=== PATIENT | female | born 1965 | race Caucasian/White ===

== ENCOUNTER 2017-02-04 09:28 | Day surgery (SDC) | payer BC ==
[2017-02-04] MEDS ORDERED: OXYCODONE/APAP 10MG-325MG TABLET PO ONE (13:17)
[2017-02-04] MEDS ORDERED: LIDOCAINE 2% MDV (20MG/ML) 20ML VIAL IV ONE (14:00)
[2017-02-04] MEDS ORDERED: *PACU ONLY* KETAMINE HCL 10 MG/ML (20ML) VIAL IV ONE (14:00)
[2017-02-04] MEDS ORDERED: PROPOFOL 10 MG/ML VIAL IV ONE (14:00)
[2017-02-04] MEDS ORDERED: FENTANYL PF 100MCG/2ML VIAL IV ONE (14:00)
[2017-02-04] MEDS ORDERED: MIDAZOLAM HCL 2MG/2ML VIAL IV ONE (14:00)
[2017-02-04] MEDS ORDERED: FLUMAZENIL 1MG/10ML VIAL IV ONE (14:00)
[2017-02-04] MEDS ORDERED: LIDOCAINE 1% W/EPI 1:200,000 MPF 30ML SQ ONE (14:15)
[2017-02-04] MEDS ORDERED: DEXAMETHASONE PRESERVATIVE FREE 10MG/ML VIAL IV ONE (14:15)
[2017-02-04] MEDS ORDERED: BUPIVACAINE 0.5% W/EPI MPF 30 ML VIAL IVP ONE (14:15)
--- NOTE | 2017-02-04 16:44 | Operative Note - Ferro ---
DATE OF SURGERY: 02/04/17 PREOPERATIVE DIAGNOSIS: CERVICAL SPONDYLOSIS WITHOUT MYELOPATHY, ICD-10 CODE = M47.812. OPERATION: RADIOFREQUENCY RHIZOTOMY BILATERAL CERVICAL FACETS 4-5, 5-6, AND 6-7. SURGEON: ISRA YOUNGBLOOD D.O. ANESTHESIA: LOCAL SEDATION. ANESTHESIA PROVIDER: ARLEN SHEIKH CRNA. INDICATION: This patient presents with neck pain. Examination shows tenderness in the cervical spine. Range of motion does cause pain to the neck with extension. Diagnostic studies show diffuse multiple levels of spondylosis. A facet series 75-80% pain control. Due to the failure of therapy and the success of the facet series, patient presents today for rhizotomy for more long-term relief. PROCEDURE: Intravenous line, vital sign monitoring, IV sedation, prepped, draped, sterile technique. Under imaging, cervical facet levels at 4-5, 5-6, and 6-7 were identified and marked bilaterally. Skin infiltrated. A 22-gauge rhizotomy cannula positioned. Stimulation trials conducted. Rhizotomy burn performed. Local with anti-inflammatory into the sites. Topical antibiotics. Sterile dressing applied. We will monitor and evaluate. cc: Dr. Heredia JOB NUMBER: [id number] MTDD
== END 2017-02-04 11:40 | disposition home or self-care (01) ==
LOC: SUR 09:28
PROVIDERS: ATTEND Pain Medicine Interventional Pain Medicine
DX: M47.812 Spondylosis without myelopathy or radiculopathy, cervical region (principal); F17.210 Nicotine dependence, cigarettes, uncomplicated
CPT/HCPCS: 64633; 64634 ×2; 01936; J1100; J3010

== ENCOUNTER 2017-06-10 06:41 | Day surgery (SDC) | payer BC ==
[2017-06-10] MEDS ORDERED: BUPIVACAINE 0.5% W/EPI MPF 30 ML VIAL IVP ONE (06:42)
[2017-06-10] MEDS ORDERED: LIDOCAINE 2% MDV (20MG/ML) 20ML VIAL IV ONE (06:42)
[2017-06-10] MEDS ORDERED: FENTANYL PF 100MCG/2ML VIAL IV ONE (06:42)
[2017-06-10] MEDS ORDERED: PROPOFOL 10 MG/ML VIAL IV ONE (06:42)
[2017-06-10] MEDS ORDERED: LIDOCAINE 1% W/EPI 1:200,000 MPF 30ML SQ ONE (06:42)
[2017-06-10] MEDS ORDERED: DEXAMETHASONE PRESERVATIVE FREE 10MG/ML VIAL IV ONE (06:42)
[2017-06-10] MEDS ORDERED: MIDAZOLAM HCL 2MG/2ML VIAL IV ONE (06:42)
[2017-06-10] MEDS ORDERED: HYDROCODONE/APAP 7.5/325MG TABLET PO ONE (06:42)
--- NOTE | 2017-06-10 15:15 | Operative Note - Ferro ---
DATE OF SURGERY: 06/10/17 PREOPERATIVE DIAGNOSIS: CERVICAL RADICULITIS, ICD-10 CODE M54.13. OPERATION: FLUOROSCOPICALLY-GUIDED CERVICAL EPIDURAL INJECTION C6/7. SURGEON: ISRA YOUNGBLOOD D.O. ANESTHESIA: LOCAL WITH SEDATION. ANESTHESIA PROVIDER: MARKO WILLOUGHBY CRNA. INDICATION: This patient presents with pain, which starts at the neck but then extends into the shoulder and arm, somewhat more left than right. Diagnostics show a 5/6 disc and diffuse spondylosis. PROCEDURE: Intravenous line, vital sign monitoring, IV sedation, prepped, draped, sterile technique. Under imaging, cervical epidural interspace left quadrant C6/7 marked and infiltrated. A #20 gauge 3.5-inch Tuohy needle with 5 mL of 0.125% Marcaine with Dexamethasone injected. Needle removed. Neck cleaned , topical antibiotic, and sterile dressing were applied. We will monitor and evaluate. cc: Dr. Heredia JOB NUMBER: [id number] MTDD
== END 2017-06-10 09:00 | disposition home or self-care (01) ==
LOC: SUR 06:41
PROVIDERS: ATTEND Pain Medicine Interventional Pain Medicine
DX: M54.13 Radiculopathy, cervicothoracic region (principal); I10 Essential (primary) hypertension
CPT/HCPCS: 62321; 01936; Q9967; J1100; J3010

== ENCOUNTER 2017-08-19 07:11 | Day surgery (SDC) | payer BC ==
[2017-08-19] MEDS ORDERED: LIDOCAINE 2% MDV (20MG/ML) 20ML VIAL IV ONE (07:12)
[2017-08-19] MEDS ORDERED: OXYCODONE/APAP 10MG-325MG TABLET PO ONE (07:12)
[2017-08-19] MEDS ORDERED: BUPIVACAINE 0.5% W/EPI MPF 30 ML VIAL IVP ONE (07:12)
[2017-08-19] MEDS ORDERED: LIDOCAINE 1% W/EPI 1:200,000 MPF 30ML SQ ONE (07:12)
[2017-08-19] MEDS ORDERED: 0.9 % SODIUM CHLORIDE 10 ML VIAL IVP ONE (07:12)
[2017-08-19] MEDS ORDERED: BUPIVACAINE 0.25% MPF 30ML VIAL IVP ONE (07:12)
[2017-08-19] MEDS ORDERED: FENTANYL PF 100MCG/2ML VIAL IV ONE (07:12)
[2017-08-19] MEDS ORDERED: MIDAZOLAM HCL 2MG/2ML VIAL IV ONE (07:12)
[2017-08-19] MEDS ORDERED: PROPOFOL 10 MG/ML VIAL IV ONE (07:12)
[2017-08-19] MEDS ORDERED: DEXAMETHASONE PRESERVATIVE FREE 10MG/ML VIAL IV ONE (07:12)
--- NOTE | 2017-08-19 20:05 | Operative Note - Ferro ---
DATE OF SURGERY: 08/19/17 PREOPERATIVE DIAGNOSIS: CERVICAL RADICULOPATHY, ICD-10 CODE = M54.12. SURGERY: FLUOROSCOPIC-GUIDED CERVICAL EPIDURAL INJECTION RIGHT QUADRANT C6-7. SURGEON: ISRA YOUNGBLOOD D.O. ANESTHESIA: LOCAL SEDATION. ANESTHESIA PROVIDER: MARKO WILLOUGHBY CRNA INDICATIONS: This patient presents with pain, which starts in the neck but then extends into the shoulder and arm. Diagnostics show both the 5-6 and 6-7 discs. SURGERY: Intravenous line, vital sign monitoring, IV sedation, prepped and draped sterile technique. Under imaging, the cervical epidural interspace right quadrant C6-7 was marked and infiltrated. An #18 gauge Tuohy needle with loss-of -resistance. 5 mL of 0.125% Marcaine with Dexamethasone injected. The right occipital area marked and skin infiltrated and then a #25 gauge needle was used to infiltrate and block the right greater occipital nerve. All areas were cleaned. Topical antibiotic and sterile dressing applied. We will monitor and evaluate. cc: Dr. Heredia JOB NUMBER: [id number] MTDD
== END 2017-08-19 08:50 | disposition home or self-care (01) ==
LOC: SUR 07:11
PROVIDERS: ATTEND Pain Medicine Interventional Pain Medicine
DX: M54.12 Radiculopathy, cervical region (principal); I10 Essential (primary) hypertension; J44.9 Chronic obstructive pulmonary disease, unspecified
CPT/HCPCS: 62321; 01992; J1100; J3010

== ENCOUNTER 2018-01-04 22:03 | Inpatient (IN) | payer BC ==
[2018-01-04] MEDS ORDERED: MORPHINE SULFATE 10 MG/ML VIAL IVP ONE (22:23)
[2018-01-04] MEDS ORDERED: ONDANSETRON HCL IV 4 MG/2 ML VIAL IVP ONE (22:23)
--- NOTE | 2018-01-04 22:28 | Emergency Department Record ---
History of Present Illness - General Chief Complaint: Abdominal Pain Stated Complaint: abdominal pain Time Seen by Provider: 01/04/18 22:22 Source: Patient Mode of Arrival: Ambulatory Limitations: No limitations - History of Present Illness Initial Comments: 52 yo female presents to ED with worsening RUQ pain symptoms that began approximately 8 days ago. Patient reports that her pain radiates to the shoulder and back. Patient reports loose stools and decreased appetite, denies fevers, chills, flank pain, or health problems at her baseline. Patient does report previous appendectomy and laparoscopy for fertility issues. Patient denies urinary symptoms. MD Complaint: Abdominal pain Onset/Timin -: Days(s) Location: RUQ Radiation: Back, Other Migration to: No migration Severity scale (1-10): 10 Quality: Sharp Consistency: Constant Improves With: Other Worsens With: Nothing Associated Symptoms: Diarrhea, Nausea, Other - Related Data Patient : No Hx Age of Menopause: 48 Home Medications Medication Instructions Recorded Confirmed Last Taken Cyclobenzaprine HCl [Flexeril] 5 mg PO TID PRN 01/04/18 01/04/18 Unknown Eszopiclone [Lunesta] 3 mg PO QHS 01/04/18 01/04/18 Unknown Hydrocodone/APAP 5/325Mg [Vulcan 1 each PO TID PRN 01/04/18 01/04/18 Unknown 5Mg/325Mg] Mometasone/Formoterol [Dulera 100 2 puff INH BID 01/04/18 01/05/18 Unknown Mcg/5 Mcg Inhaler] Verapamil HCl [Verelan Pm] 300 mg PO DAILY 01/04/18 01/04/18 Unknown Albuterol Sulfate [Ventolin Hfa] 2 puff INH Q4H PRN 01/05/18 01/05/18 Unknown Allergies Allergy/AdvReac Type Severity Reaction Status Date / Time methotrexate Allergy RASH Verified 01/04/18 22:09 Sulfa (Sulfonamide Allergy HIVES Verified 01/04/18 22:09 Antibiotics) infliximab [From Remicade] AdvReac PT UNSURE Verified 01/04/18 22:09 OF REACTION ketamine AdvReac ALTERED Verified 01/04/18 22:09 MENTAL STATUS Travel Screening - Travel/Exposure Within Last 30 Days Have you traveled within the last 30 days?: No - Travel/Exposure Within Last Year Have you traveled outside the [place] in the last year?: No - Additonal Travel Details Have you been exposed to anyone with a communicable illness?: No - Travel Symptoms Symptom Screening: None Review of Systems Constitutional: Denies: Chills, Fever, Malaise, Night sweats Eyes: Denies: Eye discharge, Eye pain ENT: Denies: Congestion, Ear pain, Epistaxis Respiratory: Denies: Cough, Dyspnea Cardiovascular: Denies: Chest pain, Dyspnea on exertion Endocrine: Denies: Fatigue, Heat or cold intolerance Gastrointestinal: Reports: Abdominal pain. Denies: Nausea Genitourinary: Denies: Incontinence, Retention Musculoskeletal: Reports: Back pain Skin: Denies: Bruising, Change in color Neurological: Denies: Abnormal gait, Confusion, Headache, Seizure Psychiatric: Denies: Anxiety Hematological/Lymphatic: Denies: Anemia, Blood Clots Past Medical History - SOCIAL HISTORY Smoking Status: Current every day smoker Alcohol Use: Rare Drug Use: None - RESPIRATORY Hx Respiratory Disorders: Yes Hx Asthma: Yes (no inhaler since she stopped smoking 6 wks ago) Hx Bronchitis: Yes Hx Pneumonia: Yes Hx Pulmonary Embolism: Yes (1995) Comment:: psittacosis hx of prior to PE. - CARDIOVASCULAR Hx Cardio Disorders: Yes Hx Hypertension: Yes (recently on meds fair control) Hx Palpitations: Yes (cardiac workup recently neg) - NEURO Hx Neuro Disorders: Yes Hx of Migraines: Yes (hx of) Hx Neuropathy: Yes (legs) Hx Paralysis: Yes (right leg paralysis for 5 days unknown etiology) - GI Hx GI Disorders: Yes Hx Reflux: Yes Hx Ulcer: Yes (GI bleed x's 2) Hx of Polyps: Yes Comment:: . - Hx Genitourinary Disorders: No - ENDOCRINE Hx Endocrine Disorders: No - MUSCULOSKELETAL Hx Musculoskeletal Disorders: Yes Hx Arthritis: Yes (RA OA) Hx Fibromyalgia: Yes Hx Osteoporosis: Yes - PSYCH Hx Psych Problems: No - HEMATOLOGY/ONCOLOGY Hx Hematology/Oncology Disorders: No Family Medical History Any Significant Family History?: No Hx Cancer: Mother Hx Heart Disease: Father Physical Exam - General General Appearance: Alert, Oriented x3, Cooperative, Moderate distress Limitations: No limitations - Head Head exam: Atraumatic, Normocephalic, Normal inspection Head exam detail: negative: Abrasion, Contusion, Bradshaw's sign, General tenderness, Hematoma, Laceration - Eye Eye exam: Normal appearance. negative: Conjunctival injection, Periorbital swelling, Periorbital tenderness, Scleral icterus - ENT Ear exam: negative: Auricular hematoma, Auricular trauma Nasal Exam: negative: Active bleeding, Discharge, Dried blood, Foreign body Mouth exam: negative: Drooling, Laceration, Muffled voice, Tongue elevation - Neck Neck exam: Normal inspection. negative: Meningismus, Tenderness - Respiratory Respiratory exam: Normal lung sounds bilaterally. negative: Rales, Respiratory distress, Rhonchi, Stridor - Cardiovascular Cardiovascular Exam: Normal rhythm, Normal heart sounds, Tachycardia - GI/Abdominal GI/Abdominal exam: Soft, Rigid, Tenderness, Other (TTP with guarding to the RUQ on examination.). negative: Rebound - Rectal Rectal exam: Deferred - exam: Deferred - Extremities Extremities exam: Normal inspection. negative: Calf tenderness, Pedal edema, Tenderness - Back Back exam: Denies: CVA tenderness (R), CVA tenderness (L) - Neurological Neurological exam: Alert, Normal gait, Oriented X3 - Psychiatric Psychiatric exam: Normal affect, Normal mood - Skin Skin exam: Normal color. negative: Abrasion Type of lesion: negative: abrasion Course Vital Signs 01/04/18 01/04/18 22:11 22:13 Temperature 98.1 F 98.1 F Pulse Rate [ 117 H Pulse Ox Probe] Respiratory 24 24 Rate Blood Pressure 170/92 [Left Arm] Pulse Ox 97 97 - Reevaluation(s) Reevaluation #1: 01/04/18 22:48 Laboratory studies were reviewed and are grossly unremarkable for an acute process except for the following: AG 20 Potassium 3.[address] at this time. Reevaluation #2: 01/05/18 00:18 CT Abdomen and Pelvis: Area of glez-colitis is suspected in the transverse colon low in the abdomen Infectious vs. inflammatory No abscess or diverticula Multiple cysts in both kidneys Patient was updated on all results, continues to report her pain symptoms at 7/ 10 following Morphine/Dilaudid. Cipro and Flagyl initiated in ED, will admit for further evaluation. Reevaluation #3: 01/05/18 07:10 Case was discussed with Chasity Watts, will accept admission at this time. Medical Decision Making - Lab Data Result diagrams: 01/04/18 22:19 01/04/18 22:19 Disposition Disposition: Admit Clinical Impression: Colitis Disposition: Still a Patient at [facility] Decision to Admit: Admit from ER Decision to Admit Date: 01/05/18 Decision to Admit Time: 00:21 Condition: (2) Stable Time of Disposition: 00:21 Quality - Quality Measures Quality Measures: N/A - Blood Pressure Screening Does Patient Have Any of the Following: No Blood Pressure Classification: Normal BP Reading Systolic Measurement: 92 Diastolic Measurement: 60 Screening for High Blood Pressure: < Normal BP, F/U Not Required > [[id number]] Pre-Hypertensive Follow-up Interventions: Referral to alternative/primary care provider.
[2018-01-04] MEDS ORDERED: 0.9 % SODIUM CHLORIDE 1000ML 1,000 ML IV SCH (22:30)
[2018-01-04 22:32] LABS: BASO % 0.1 % (0-6); EOS % 0.4 % (0-6); GRAN % 55.1 % (47-80); HEMATOCRIT 45.2 % (35.0-47.0); HEMOGLOBIN 15.3 gm/dl (11.6-16.0); LYMPH % 38.3 % (16-45); MEAN CELL VOLUME 92.4 fl (81-97); MEAN CORPUSCULAR HEMOGLOBIN 31.3 pg (27-33); MEAN CORPUSCULAR HGB CONC 33.8 g/dl (32-36); MONO % 6.1 % (0-9); PLATELET COUNT 351 K/uL (130-400); RED BLOOD COUNT 4.89 M/uL (3.80-5.40); RED CELL DISTRIBUTION WIDTH 13.8 % (11.5-14.5); WHITE BLOOD COUNT W/O DIFF 9.2 K/uL (4.2-12.2)
[2018-01-04 22:33] LABS: URINE APPEARANCE CLEAR; URINE BILIRUBIN NEGATIVE (NEGATIVE); URINE BLOOD SMALL (NEGATIVE); URINE COLOR YELLOW; URINE GLUCOSE (UA) NEGATIVE (NEGATIVE); URINE KETONE TRACE (NEGATIVE); URINE LEUKOCYTE ESTERASE NEGATIVE (NEGATIVE); URINE NITRITE NEGATIVE (NEGATIVE); URINE PROTEIN NEGATIVE (NEGATIVE); URINE UROBILINOGEN 0.2 E.U./dL (0.20 - 1.00)
[2018-01-04 22:39] LABS: URINE EPITHELIAL CELLS NONE SEEN (FEW); URINE RBC 0 - 2 (NONE SEEN); URINE WBC 0 - 2 (0-2/hpf)
[2018-01-04 22:42] LABS: BLOOD UREA NITROGEN 8 mg/dL (6-20); CREATININE 0.8 mg/dL (0.5-0.9); EST GLOMERULAR FILTRATION RATE > 60 mL/min
[2018-01-04 22:43] LABS: TOTAL PROTEIN 7.9 g/dL (6.6-8.7)
[2018-01-04 22:45] LABS: GLUCOSE,RANDOM 110 mg/dL (74-109)
[2018-01-04 22:47] LABS: ALB/GLOB RATIO 1.7 (1.1-1.8); ALKALINE PHOSPHATASE 86 U/L (35-104); ALT/SGPT 16 U/L (<33); AST/SGOT 18 U/L (10.0-35.0)
[2018-01-04 22:48] LABS: LIPASE 14 U/L (13-60)
[2018-01-04] MEDS ORDERED: HYDROMORPHONE HCL 2 MG/ML VIAL IVP ONE (23:19)
[2018-01-05] MEDS ORDERED: CIPROFLOXACIN LACTATE/D5W 400 MG/200 ML BAG IVPB ONE (00:17)
[2018-01-05] MEDS ORDERED: METRONIDAZOLE IVPB 500 MG/100 ML BAG IVPB ONE (00:17)
[2018-01-05] MEDS ORDERED: 0.9 % SODIUM CHLORIDE 1000ML 1,000 ML IV PRN (01:26)
[2018-01-05] MEDS ORDERED: ZOLPIDEM TARTRATE 5 MG TABLET PO PRN (01:40)
[2018-01-05] MEDS: HYDROMORPHONE HCL 2 MG/ML VIAL IV PRN ×4 (01:53→20:31)
[2018-01-05] MEDS ORDERED: CIPROFLOXACIN LACTATE/D5W 400 MG/200 ML BAG IVPB SCH (02:00)
[2018-01-05] MEDS: METRONIDAZOLE IVPB 500 MG/100 ML BAG IVPB SCH ×3 (02:54→20:37)
[2018-01-05] MEDS ORDERED: CYCLOBENZAPRINE 10MG TABLET PO PRN (09:30)
[2018-01-05] MEDS: VERAPAMIL ER 120 MG TABLET PO SCH (09:52)
[2018-01-05] MEDS: VERAPAMIL HCL 180 MG TAB CR PO SCH (09:52)
--- NOTE | 2018-01-05 09:52 | CT SCAN REPORT ---
EXAM: CT OF THE ABDOMEN AND PELVIS WITH CONTRAST HISTORY: RIGHT UPPER QUADRANT ABDOMINAL PAIN FOR EIGHT DAYS. TECHNIQUE: Contrast enhanced helical CT examination of the abdomen and pelvis was performed including delayed images through the kidneys with 100 ml of Omnipaque 300 utilized. Comparison: None. FINDINGS: There is mild dependent atelectasis in the left lung base. Minor linear scarring versus atelectasis is also demonstrated within the anterior lung bases. No pleural or pericardial effusion. The visualized heart is not enlarged. The liver, spleen, pancreas, and adrenal glands are normal in appearance. The gallbladder is unremarkable and no biliary ductal dilatation is seen. The kidneys are normal in size. Several small hypodense lesions are scattered in each kidney with the largest on the right arises from the posterior lower pole measuring 1.6 x 1.3 cm and has fluid density. The largest on the left also has fluid density measuring 1.3 cm in maximum diameter. These are consistent with simple cysts. The remaining lesions are too small for accurate characterization and therefore nonspecific, but also likely cysts. No intraabdominal nor retroperitoneal lymphadenopathy. The central mesenteric vasculature appears patent. Mild diffuse atherosclerosis without aneurysmal dilatation of the abdominal aorta nor iliac arteries. No pelvic mass, lymphadenopathy or free pelvic fluid. The uterus is normal in appearance. No focal urinary bladder abnormality is identified. No gross bowel dilatation is seen. There is apparent borderline to mild wall thickening of the colon extending from the mid transverse level to the sigmoid level. This may just relate to incomplete distention. Minor nonspecific colitis cannot be excluded. Surgical clips are noted posterior to the cecum. The gallbladder is not visualized, likely surgically absent. No lytic or blastic bone lesion. Mild degenerative changes scattered within the visualized spine. IMPRESSION: 1. APPARENT BORDERLINE TO MILD WALL THICKENING OF THE LEFT COLON. THIS MAY JUST RELATE TO INCOMPLETE DISTENTION. MILD NONSPECIFIC COLITIS CANNOT BE EXCLUDED. OTHERWISE, NO EVIDENCE OF AN ACUTE INTRAABDOMINAL/INTRAPELVIC PROCESS. 2. SEVERAL SMALL HYPODENSE MASSES IN EACH KIDNEY. THOSE GREATER THAN 1 CM ARE CONSISTENT WITH SIMPLE CYSTS. THE REMAINDER ARE TOO SMALL FOR ACCURATE CHARACTERIZATION AND ARE NONSPECIFIC, BUT ALSO LIKELY CYSTS. JOB NUMBER: [id number] [facility]
[2018-01-05] MEDS ORDERED: BREO (FLUTICASONE/VILANTEROL) 100MCG/25MCG INHALER INH SCH (10:00)
[2018-01-05] MEDS ORDERED: CYCLOBENZAPRINE 10MG TABLET PO SCH (10:00)
--- NOTE | 2018-01-05 10:17 | History & Physical ---
History of Present Illness - Date of Service Date of Service for History & Physical: 01/05/18 - History of Present Illness Admitting Diagnosis: Pancolitis History of Present Illness: 52 year old female presented to ED for worsening RUQ pain x 8 days. Patient also reports frequent diarrhea stools for the past 8 days, sometimes up to 8 times per day. Patient denies blood in the stools, vomiting, shortness of breath, or dizziness. Patient states that the pain radiates to the shoulder and back. She is unsure if she has had a fever, reporting frequent feelings of being flushed. Patient denies any urinary symptoms. Patient's medical history includes rheumatoid arthritis, inflammatory arthritis , fibromyalgia, cancerous polyps of her colon, and back pain for which she sees Dr. Yap. Past surgical history includes an appendectomy and laparoscopy for fertility issues. PCP: ED Course: VS: Temp 98.1F, Heart rate 117, RR 24, BP 170/92, pulse ox 97% Labs: K+ 3.2, anion gap 20, WBC WNL, UA trace ketones Abd/pelvis CT: mild colitis, bilateral renal cysts Started on Cipro and Flagyl Morphine and Dilaudid for pain control NPO, 0.9%NS @ 125ml/hr 01/05/18: Patient alert and oriented x 4. Resting comfortably on bed. Patient remains NPO, IV fluids 0.9%NS @125ml/hr. VS wnl. Patient continues to have RUQ abd pain 7/10 despite Dilaudid. Abd US ordered, CRP pending. Stool cultures ordered as well. Will remain NPO until further testing resulted, will add K+ to IV fluids. Travel Screening - Travel/Exposure Within Last 30 Days Have you traveled within the last 30 days?: No - Travel/Exposure Within Last Year Have you traveled outside the [place] in the last year?: No - Additonal Travel Details Have you been exposed to anyone with a communicable illness?: No - Travel Symptoms Symptom Screening: None Review of Systems Constitutional: Denies: Chills, Fever, Malaise, Night sweats Eyes: Denies: Eye discharge, Eye pain ENT: Denies: Congestion, Ear pain, Epistaxis Respiratory: Denies: Cough, Dyspnea Cardiovascular: Denies: Chest pain, Dyspnea on exertion Endocrine: Denies: Fatigue, Heat or cold intolerance Gastrointestinal: Reports: Abdominal pain, Nausea. Denies: Vomiting Genitourinary: Denies: Incontinence, Retention Musculoskeletal: Reports: Back pain (chronic) Skin: Denies: Bruising, Change in color Neurological: Denies: Abnormal gait, Confusion, Headache, Seizure Psychiatric: Denies: Anxiety Hematological/Lymphatic: Denies: Anemia, Blood Clots Past Medical History - SOCIAL HISTORY Smoking Status: Current every day smoker Alcohol Use: Rare Drug Use: None - RESPIRATORY Hx Respiratory Disorders: Yes Hx Asthma: Yes (no inhaler since she stopped smoking 6 wks ago) Hx Bronchitis: Yes Hx Pneumonia: Yes Hx Pulmonary Embolism: Yes (1995) Comment:: psittacosis hx of prior to PE. - CARDIOVASCULAR Hx Cardio Disorders: Yes Hx Hypertension: Yes (recently on meds fair control) Hx Palpitations: Yes (cardiac workup recently neg) - NEURO Hx Neuro Disorders: Yes Hx of Migraines: Yes (hx of) Hx Neuropathy: Yes (legs) Hx Paralysis: Yes (right leg paralysis for 5 days unknown etiology) - GI Hx GI Disorders: Yes Hx Reflux: Yes Hx Ulcer: Yes (GI bleed x's 2) Hx of Polyps: Yes Comment:: . - Hx Genitourinary Disorders: No - ENDOCRINE Hx Endocrine Disorders: No - MUSCULOSKELETAL Hx Musculoskeletal Disorders: Yes Hx Arthritis: Yes (RA OA) Hx Fibromyalgia: Yes Hx Osteoporosis: Yes - PSYCH Hx Psych Problems: No - HEMATOLOGY/ONCOLOGY Hx Hematology/Oncology Disorders: No Family Medical History Any Significant Family History?: No Hx Cancer: Mother Hx Heart Disease: Father H&P Meds/Allergies - Allergies Allergies: Allergies Allergy/AdvReac Type Severity Reaction Status Date / Time methotrexate Allergy RASH Verified 01/04/18 22:09 Sulfa (Sulfonamide Allergy HIVES Verified 01/04/18 22:09 Antibiotics) infliximab [From Remicade] AdvReac PT UNSURE Verified 01/04/18 22:09 OF REACTION ketamine AdvReac ALTERED Verified 01/04/18 22:09 MENTAL STATUS - Home Medications Home Medications Medication Instructions Recorded Confirmed Last Taken Cyclobenzaprine HCl [Flexeril] 5 mg PO TID PRN 01/04/18 01/04/18 Unknown Eszopiclone [Lunesta] 3 mg PO QHS 01/04/18 01/04/18 Unknown Hydrocodone/APAP 5/325Mg [[place] 1 each PO TID PRN 01/04/18 01/04/18 Unknown 5Mg/325Mg] Mometasone/Formoterol [Dulera 100 2 puff INH BID 01/04/18 01/05/18 Unknown Mcg/5 Mcg Inhaler] Verapamil HCl [Verelan Pm] 300 mg PO DAILY 01/04/18 01/04/18 Unknown Albuterol Sulfate [Ventolin Hfa] 2 puff INH Q4H PRN 01/05/18 01/05/18 Unknown - Active Medications Active Medications: Current Medications Cyclobenzaprine HCl (Flexeril) 5 mg PO TID PRN PRN Reason: MUSCLE SPASM Last Admin: 01/05/18 09:51 Dose: 5 mg Enoxaparin Sodium (Lovenox) 40 mg SQ DAILY [facility] Hydromorphone HCl (Dilaudid) 1 mg IV Q2H PRN PRN Reason: ABDOMINAL PAIN Last Admin: 01/05/18 08:27 Dose: 1 mg Sodium Chloride () 1,000 mls @ 125 mls/hr IV .Q8H PRN PRN Reason: LARGE VOLUME IV Metronidazole/Sodium Chloride (Flagyl) 500 mg in 100 mls @ 100 mls/hr IVPB Q8H [facility] Stop: 01/10/18 02:01 Last Admin: 01/05/18 09:50 Dose: 100 mls/hr Ciprofloxacin Lactate (Cipro) 400 mg in 200 mls @ 200 mls/hr IVPB Q12H [facility] Stop: 01/10/18 13:01 Patient Own Med: (Lunesta 3 Mg) 1 each PO QHS [facility] Verapamil HCl (Calan Sr) 180 mg PO DAILY [facility] Last Admin: 01/05/18 09:52 Dose: 180 mg Verapamil HCl (Calan Sr) 120 mg PO DAILY [facility] Last Admin: 01/05/18 09:52 Dose: 120 mg Physical Exam - Vital Signs Vital Signs: Vital Signs - Last 24 Hrs Temp Pulse Resp BP BP Pulse Ox 01/05/18 08:59 97.2 F L 80 18 115/65 93 L 01/05/18 03:23 16 01/05/18 01:26 98.6 F 91 H 16 140/56 98 01/05/18 01:21 90 20 119/73 95 01/05/18 00:12 76 18 127/75 98 01/04/18 23:16 110 H 24 146/71 98 01/04/18 22:13 98.1 F 24 97 01/04/18 22:11 98.1 F 117 H 24 170/92 97 - General General Appearance: Alert, Oriented x3, Cooperative, No acute distress Limitations: No limitations - Head Head exam: Atraumatic, Normocephalic, Normal inspection Head exam detail: negative: Abrasion, Contusion, Bradshaw's sign, General tenderness, Hematoma, Laceration - Eye Eye exam: Normal appearance. negative: Conjunctival injection, Periorbital swelling, Periorbital tenderness, Scleral icterus - ENT ENT exam: Normal exam, Mucous membranes moist Ear exam: negative: Auricular hematoma, Auricular trauma Nasal Exam: negative: Active bleeding, Discharge, Dried blood, Foreign body Mouth exam: Normal external inspection. negative: Drooling, Laceration, Muffled voice, Tongue elevation - Neck Neck exam: Normal inspection. negative: Meningismus, Tenderness - Respiratory Respiratory exam: Normal lung sounds bilaterally. negative: Rales, Respiratory distress, Rhonchi, Stridor - Cardiovascular Cardiovascular Exam: Regular rate, Normal rhythm, Normal heart sounds - GI/Abdominal GI/Abdominal exam: Soft, Normal bowel sounds, Tenderness, Other (TTP with guarding to the RUQ on examination.). negative: Rebound - Rectal Rectal exam: Deferred - exam: Deferred - Extremities Extremities exam: Normal inspection. negative: Calf tenderness, Pedal edema, Tenderness - Back Back exam: Denies: CVA tenderness (R), CVA tenderness (L) - Neurological Neurological exam: Alert, Normal gait, Oriented X3 - Psychiatric Psychiatric exam: Normal affect, Normal mood - Skin Skin exam: Normal color. negative: Abrasion Type of lesion: negative: abrasion Results - Labs Result Diagrams: 01/04/18 22:19 01/04/18 22:19 Labs Last 24 Hours: Laboratory Results - last 24 hr 01/04/18 01/04/18 01/04/18 22:19 22:19 22:19 WBC 9.2 RBC 4.89 Hgb 15.3 Hct 45.2 MCV 92.4 MCH 31.3 MCHC 33.8 RDW 13.8 Plt Count 351 MPV 9.0 Gran % 55.1 Lymphocytes % 38.3 Monocytes % 6.1 Eosinophils % 0.4 Basophils % 0.1 Sodium 138 Potassium 3.2 L Chloride 95 L Carbon Dioxide 23.0 Anion Gap 20.0 H BUN 8 Creatinine 0.8 Estimated GFR > 60 Random Glucose 110 H Calcium 9.7 Total Bilirubin 0.50 AST 18 ALT 16 Alkaline Phosphatase 86 Total Protein 7.9 Albumin 5.0 Globulin 2.9 Albumin/Globulin Ratio 1.7 Lipase 14 Urine Color Yellow Urine Appearance Clear Urine pH 6.0 Ur Specific [place] 1.010 Urine Protein Negative Urine Glucose (UA) Negative Urine Ketones Trace H Urine Blood Small H Urine Nitrite Negative Urine Bilirubin Negative Urine Urobilinogen 0.2 Ur Leukocyte Esterase Negative Urine RBC 0 - 2 Urine WBC 0 - 2 Ur Epithelial Cells None seen VTE H&P Assessment - Risk for VTE Risk for VTE: Yes Risk Level: Moderate Risk Assessment Date: 01/05/18 Risk Assessment Time: 10:23 VTE Orders Placed or Will Be Placed: Yes Plan - Inpatient Certification Inpatient Certification: Admit to inpatient care: Based on my medical assessment, after consideration of patient's risk factors (age, co-morbidities and patient presenting symptoms and acuity), I expect that this patient will remain in the hospital greater than or equal to two midnights and that the services needed warrant inpatient care because: Patient Risk Factors: [pain, diarrhea, need for IV fluids] Estimated length of stay: The patient may reasonably be expected to be discharged or transferred to a hospital within 96 hours after admission to [facility]. Services needed: [IV fluids, additional testing, repeat lab work, pain control] Post hospital care (if known): [] I certify that my determination is in accordance with my understanding of Medicare requirements for reasonable and necessary inpatient services. 01/05/18 10:23 - Detailed Diagnosis and Plan (1) Diarrhea Current Visit: Yes Status: Acute Base Code: R19.7 - DIARRHEA, UNSPECIFIED Comment: 01/05/18: Patient reports history of frequent liquid stools daily x 8 days. Denies any urinary symptoms, denies blood in stools. States stools now appear frothy and white. -Stool cultures ordered (2) Abdominal pain Current Visit: Yes Status: Acute Base Code: R10.9 - UNSPECIFIED ABDOMINAL PAIN Comment: 01/05/18: Patient reports of worsening abdominal pain x 8 days. -Abd/pelvis CT in ED: possible mild colitis with bilateral renal cysts -Dilaudid 1mg IVP q2h prn pain -NPO -Abd US, sed rate, CRP pending (3) Colitis Current Visit: Yes Status: Acute Base Code: K52.9 - NONINFECTIVE GASTROENTERITIS AND COLITIS, UNSPECIFIED Comment: 01/05/18: Abd/pelvis CT completed in ED revealed mild colitis. Cipro and Flagyl started by ED physician. -NPO -0.9% NS @ 125ml/hr -Dilaudid prn abdominal pain (4) Hypokalemia Current Visit: Yes Status: Acute Base Code: E87.6 - HYPOKALEMIA Comment: : K+ 3.2 in ED -Will replaced with K+ NS maintenance fluids while patient is NPO (5) DVT prophylaxis Current Visit: Yes Status: Acute Base Code: [id number] - Comment: 01/05/18: Patient moderate risk due to hospitalization and decreased mobility -Lovenox 40mg SQ daily (6) Full code status Current Visit: Yes Status: Acute Base Code: Z78.9 - OTHER SPECIFIED HEALTH STATUS Comment: 01/05/18: Patient is full code status this admission
[2018-01-05] MEDS ORDERED: HYDROMORPHONE HCL 2 MG/ML VIAL IVP ONE (11:07)
[2018-01-05] MEDS: CIPROFLOXACIN LACTATE/D5W 400 MG/200 ML BAG IVPB SCH (12:34)
[2018-01-05] MEDS: POTASSIUM CHL 20MEQ IN 1L NS 20 MEQ/1,000 ML BAG IV SCH ×2 (12:40→22:30)
[2018-01-05] MEDS ORDERED: LUNESTA 3 MG PO SCH (22:00)
[2018-01-06] MEDS: CIPROFLOXACIN LACTATE/D5W 400 MG/200 ML BAG IVPB SCH (00:43)
[2018-01-06] MEDS: POTASSIUM CHL 20MEQ IN 1L NS 20 MEQ/1,000 ML BAG IV SCH ×3 (02:01→09:55)
[2018-01-06] MEDS: METRONIDAZOLE IVPB 500 MG/100 ML BAG IVPB SCH (02:10)
[2018-01-06 06:48] LABS: EOS % 1.4 % (0-6); GRAN % 43.3 % (47-80); HEMATOCRIT 39.4 % (35.0-47.0); HEMOGLOBIN 12.6 gm/dl (11.6-16.0); LYMPH % 47.8 % (16-45); MEAN CELL VOLUME 94.9 fl (81-97); MEAN CORPUSCULAR HEMOGLOBIN 30.4 pg (27-33); MEAN PLATELET VOLUME 9.1 fl (7.4-10.4); MONO % 7.5 % (0-9); PLATELET COUNT 265 K/uL (130-400); RED BLOOD COUNT 4.15 M/uL (3.80-5.40); RED CELL DISTRIBUTION WIDTH 13.5 % (11.5-14.5); WHITE BLOOD COUNT W/O DIFF 5.9 K/uL (4.2-12.2)
[2018-01-06 07:16] LABS: ALB/GLOB RATIO 1.7 (1.1-1.8); ALBUMIN 3.8 g/dL (4.0-5.0); ALKALINE PHOSPHATASE 65 U/L (35-104); ALT/SGPT 12 U/L (<33); AST/SGOT 13 U/L (10.0-35.0); BLOOD UREA NITROGEN 7 mg/dL (6-20); CREATININE 0.7 mg/dL (0.5-0.9); EST GLOMERULAR FILTRATION RATE > 60 mL/min; GLUCOSE,RANDOM 94 mg/dL (74-109)
--- NOTE | 2018-01-06 08:16 | ULTRASOUND REPORT ---
EXAM: ULTRASOUND OF THE ABDOMEN COMPLETE HISTORY: RIGHT UPPER QUADRANT ABDOMINAL PAIN FOR EIGHT DAYS. TECHNIQUE: Routine ultrasound examination of the abdomen was performed. Comparison: CT of the abdomen and pelvis with contrast dated 01/04/18 at 23:03. FINDINGS: The pancreas is visualized and normal in appearance. The pancreatic duct is visualized though is normal in caliber. The abdominal aorta is is without aneurysmal dilatation and the inferior vena cava is patent. The liver is homogeneous in echotexture and there is no intrahepatic biliary ductal dilatation. The common hepatic duct diameter of 9 mm is mildly prominent. Correlation with serum bilirubin and alkaline phosphatase levels is recommended. The gallbladder is normal in appearance and there is a negative sonographic Tate's sign. The spleen is not enlarged and is homogeneous in echotexture. Screening evaluation of the kidneys does not demonstrate hydronephrosis. The right kidney measures 10.6 cm in length while the left measures 10.9 cm in length. There are two cystic areas suggested within the right kidney. That laterally measures 1.2 x 0.8 x 1.4 cm and that at the medial mid level measures 0.8 x 0.7 x 1.0 cm. These are consistent with benign cysts. IMPRESSION: 1. NORMAL SONOGRAPHIC APPEARANCE OF THE GALLBLADDER. 2. MILD PROMINENCE OF THE COMMON HEPATIC DUCT MEASURING 9 MM, WITHOUT INTRAHEPATIC BILIARY DUCTAL DILATATION. CORRELATION WITH SERUM BILIRUBIN AND ALKALINE PHOSPHATASE LEVELS IS RECOMMENDED. 3. TWO SMALL CYSTS SUGGESTED WITHIN THE RIGHT KIDNEY. JOB NUMBER: [id number] MTDD
[2018-01-06] MEDS: VERAPAMIL HCL 180 MG TAB CR PO SCH (09:24)
[2018-01-06] MEDS: VERAPAMIL ER 120 MG TABLET PO SCH (09:24)
[2018-01-06] MEDS ORDERED: ENOXAPARIN 40 MG/0.4 ML SYR SQ SCH (10:00)
--- NOTE | 2018-01-06 10:46 | Discharge Summary ---
Providers Discharge Summary Date: 01/06/18 Date of admission: 01/05/18 01:22 Expected Date of Discharge: 01/06/18 Attending physician: ROD SANCHEZ Primary care physician: VERONIKA FREDERICK M.D. Physical Exam - Vital Signs Vital Signs: Vital Signs - Last 24 Hrs Temp Pulse Resp BP BP Pulse Ox 01/06/18 08:08 20 01/06/18 07:31 98.1 F 73 16 102/66 96 01/06/18 01:00 98.3 F 72 16 119/60 98 01/05/18 21:00 16 01/05/18 17:00 97.9 F 85 18 92/60 94 L - General General Appearance: Alert, Oriented x3, Cooperative, No acute distress Limitations: No limitations - Head Head exam: Atraumatic, Normocephalic, Normal inspection Head exam detail: negative: Abrasion, Contusion, Bradshaw's sign, General tenderness, Hematoma, Laceration - Eye Eye exam: Normal appearance. negative: Conjunctival injection, Periorbital swelling, Periorbital tenderness, Scleral icterus - ENT ENT exam: Normal exam, Mucous membranes moist Ear exam: negative: Auricular hematoma, Auricular trauma Nasal Exam: negative: Active bleeding, Discharge, Dried blood, Foreign body Mouth exam: negative: Drooling, Laceration, Muffled voice, Tongue elevation - Neck Neck exam: Normal inspection. negative: Meningismus, Tenderness - Respiratory Respiratory exam: Normal lung sounds bilaterally. negative: Rales, Respiratory distress, Rhonchi, Stridor - Cardiovascular Cardiovascular Exam: Regular rate, Normal rhythm, Normal heart sounds - GI/Abdominal GI/Abdominal exam: Soft, Tenderness, Other (mild TTP of the RUQ on examination.) . negative: Rebound - Rectal Rectal exam: Deferred - exam: Deferred - Extremities Extremities exam: Normal inspection. negative: Calf tenderness, Pedal edema, Tenderness - Back Back exam: Denies: CVA tenderness (R), CVA tenderness (L) - Neurological Neurological exam: Alert, Normal gait, Oriented X3 - Psychiatric Psychiatric exam: Normal affect, Normal mood - Skin Skin exam: Normal color. negative: Abrasion Type of lesion: negative: abrasion Hospitalization - Hospitalization Admission Diagnosis: Pancolitis - Problem List/Discharge Diagnosis (1) Diarrhea Current Visit: Yes Status: Acute Base Code: R19.7 - DIARRHEA, UNSPECIFIED Comment: 01/06/18: Patient reports history of frequent liquid stools daily x 8 days. Denies any urinary symptoms, denies blood in stools. States stools now appear frothy and white. -Stool cultures ordered, unable to collect as patient has not had bowel movement since admission (2) Abdominal pain Current Visit: Yes Status: Acute Base Code: R10.9 - UNSPECIFIED ABDOMINAL PAIN Comment: 01/06/18: Patient reports of worsening abdominal pain x 8 days. -Abd/pelvis CT in ED: possible mild colitis with bilateral renal cysts -Dilaudid 1mg IVP q2h prn pain. Pain improving today, last dose of dilaudid > 12 hours ago -Advancing diet as tolerated -Abd US: normal gallbladder, common hepatic bile duct measures 9mm, benign cysts found on right kidney -Bilirubin 0.50, Alk phos 86, CRP 0.13, ESR 9 -Pain improved today, no further diarrhea, tolerating advanced diet (3) Colitis Current Visit: Yes Status: Acute Base Code: K52.9 - NONINFECTIVE GASTROENTERITIS AND COLITIS, UNSPECIFIED Comment: 01/06/18: Abd/pelvis CT completed in ED revealed mild colitis. Cipro and Flagyl started by ED physician. -Advancing diet as tolerated -Fluids stopped, Cipro and Flagyl dc due to no indication of infectious etiology at this time -Dilaudid prn abdominal pain (4) Hypokalemia Current Visit: Yes Status: Acute Base Code: E87.6 - HYPOKALEMIA Comment: : K+ 3.2 in ED -K+ replaced, today it is 4.2. Patient is resuming normal diet. (5) DVT prophylaxis Current Visit: Yes Status: Acute Base Code: [id number] - Comment: 01/06/18: Patient moderate risk due to hospitalization and decreased mobility -No need for further coverage at discharge as patient will resume normal activity at home (6) Full code status Current Visit: Yes Status: Acute Base Code: Z78.9 - OTHER SPECIFIED HEALTH STATUS Comment: 01/06/18: Patient is full code status this admission - Hospitalization Course Disposition: Home, Self-Care Hospital Course: 52 year old female presented to ED for worsening RUQ pain x 8 days. Patient also reports frequent diarrhea stools for the past 8 days, sometimes up to 8 times per day. Patient denies blood in the stools, vomiting, shortness of breath, or dizziness. Patient states that the pain radiates to the shoulder and back. She is unsure if she has had a fever, reporting frequent feelings of being flushed. Patient denies any urinary symptoms. Patient's medical history includes rheumatoid arthritis, inflammatory arthritis , fibromyalgia, cancerous polyps of her colon, and back pain for which she sees Dr. Yap. Past surgical history includes an appendectomy and laparoscopy for fertility issues. PCP: ED Course: VS: Temp 98.1F, Heart rate 117, RR 24, BP 170/92, pulse ox 97% Labs: K+ 3.2, anion gap 20, WBC WNL, UA trace ketones Abd/pelvis CT: mild colitis, bilateral renal cysts Started on Cipro and Flagyl Morphine and Dilaudid for pain control NPO, 0.9%NS @ 125ml/hr 01/05/18: Patient alert and oriented x 4. Resting comfortably on bed. Patient remains NPO, IV fluids 0.9%NS @125ml/hr. VS wnl. Patient continues to have RUQ abd pain /10 despite Dilaudid. Abd US ordered, CRP pending. Stool cultures ordered as well. Will remain NPO until further testing resulted, will add K+ to IV fluids. 01/06/18: Patient alert and oriented x 4. Resting comfortably in bed, tolerating advanced diet. Abd US negative for gallbladder etiology of pain. Pain likely due to colitis. Will dc cipro and flagyl as no concern for infectious etiology at this time. Patient states she has some Vicodin at home from Dr. Yap that she can take if she has acute onset of abdominal pain. Patient instructed to slowly advance diet and follow-up with PCP next week. Procedures: Imaging and X-Rays 01/04/18 22:23 ABDOMEN/PELVIS W CONTRAST [CT] Stat 01/05/18 09:30 ABDOMEN, COMPLETE [US] Stat Abnormal Labs: Abnormal Lab Results 01/04/18 01/04/18 01/06/18 Range/Units 22:19 22:19 06:10 Gran % 43.3 L (47-80) % Lymphocytes % 47.8 H (16-45) % Potassium 3.2 L (3.4-4.5) mmol/L Chloride 95 L (98-107) mmol/L Anion Gap 20.0 H (7-16) Random Glucose 110 H (74-109) mg/dL Total Protein (6.6-8.7) g/dL Albumin (4.0-5.0) g/dL Urine Ketones Trace H (NEGATIVE) Urine Blood Small H (NEGATIVE) 01/06/18 Range/Units 06:10 Gran % (47-80) % Lymphocytes % (16-45) % Potassium (3.4-4.5) mmol/L Chloride (98-107) mmol/L Anion Gap (7-16) Random Glucose (74-109) mg/dL Total Protein 6.0 L (6.6-8.7) g/dL Albumin 3.8 L (4.0-5.0) g/dL Urine Ketones (NEGATIVE) Urine Blood (NEGATIVE) Condition at Discharge: (2) Stable VTE Discharge VTE Reason For No Overlap Therapy: Not Indicated Discharge Medications - Discharge Medications Home Medications: Ambulatory Orders Cyclobenzaprine HCl [Flexeril] 5 mg PO TID PRN 01/04/18 [Last Taken Unknown] Eszopiclone [Lunesta] 3 mg PO QHS 01/04/18 [Last Taken Unknown] Hydrocodone/APAP 5/325Mg [Pitts 5Mg/325Mg] 1 each PO TID PRN 01/04/18 [Last Taken Unknown] Mometasone/Formoterol [Dulera 100 Mcg/5 Mcg Inhaler] 2 puff INH BID 01/04/18 [ Last Taken Unknown] Verapamil HCl [Verelan Pm] 300 mg PO DAILY 01/04/18 [Last Taken Unknown] Albuterol Sulfate [Ventolin Hfa] 2 puff INH Q4H PRN 01/05/18 [Last Taken Unknown ] Discharge Plan - Discharge Instructions Activity at Discharge: Increase Activity as Tolerated Diet at Discharge: Advance to Usual Diet Additional Instructions: -Follow-up with your PCP next week -Slowly advance your diet as tolerated Quality Measures - Quality Measures Quality Measures: Documentation of Current Medications in Medical Record, Screening for High Blood Pressure and F/U Documented - Current Medications Quality Measure: Measure #130: Documentation of Current Medications Documentation of Current Medications: <Current Medications Documented/Reviewed> [[id number]] - Blood Pressure Screening Quality Measure: Screening for High Blood Pressure and Follow-Up Documented Does Patient Have Any of the Following: No Blood Pressure Classification: Normal BP Reading Systolic Measurement: 102 Diastolic Measurement: 66 Screening for High Blood Pressure: < Normal BP, F/U Not Required > [G8783] - Elder Abuse Suspicion Index EASI Reference Information: Bonny MOLINA, Sabrina Zambrano, Carmelita Clark, Alyson Bermudez.Development and validation of a tool to assist physicians identification of elder abuse: The Elder Abuse Suspicion Index (EASI ). Journal of Elder Abuse and Neglect, 2008; 20 (3): 276-300.
== END 2018-01-06 14:30 | disposition home or self-care (01) | DRG 392 ==
LOC: ER 22:03 → MEDSURG 01-05 01:22
PROVIDERS: ADMIT Internal Medicine; ATTEND Internal Medicine
DX: K52.9 Noninfective gastroenteritis and colitis, unspecified (principal); R19.7 Diarrhea, unspecified; E87.6 Hypokalemia; I10 Essential (primary) hypertension; G62.9 Polyneuropathy, unspecified; M06.9 Rheumatoid arthritis, unspecified; M19.90 Unspecified osteoarthritis, unspecified site; K21.9 Gastro-esophageal reflux disease without esophagitis; M79.7 Fibromyalgia; Z86.711 Personal history of pulmonary embolism
CPT/HCPCS: 74177; 76700; 80053; 81001; 83690; 85025; 85651; 86140; 96361; 96365; 96374; 96375; 99223; 99239; 99285; J2270; J2405; J7030

== ENCOUNTER 2018-04-28 07:03 | Day surgery (SDC) | payer BC ==
[2018-04-28] MEDS ORDERED: FENTANYL PF 100MCG/2ML VIAL IV ONE (07:04)
[2018-04-28] MEDS ORDERED: BUPIVACAINE 0.25% MPF 30ML VIAL IVP ONE (07:04)
[2018-04-28] MEDS ORDERED: MIDAZOLAM HCL 2MG/2ML VIAL IV ONE (07:04)
[2018-04-28] MEDS ORDERED: BUPIVACAINE 0.5% W/EPI MPF 30 ML VIAL IVP ONE (07:04)
[2018-04-28] MEDS ORDERED: LIDOCAINE 1% W/EPI 1:200,000 MPF 30ML SQ ONE (07:04)
[2018-04-28] MEDS ORDERED: LIDOCAINE 2% MDV (20MG/ML) 20ML VIAL IV ONE (07:04)
[2018-04-28] MEDS ORDERED: PROPOFOL 10 MG/ML VIAL IV ONE (07:04)
[2018-04-28] MEDS ORDERED: DEXAMETHASONE PRESERVATIVE FREE 10MG/ML VIAL IV ONE (07:04)
--- NOTE | 2018-04-29 18:01 | Operative Note - [place] ---
DATE OF SURGERY: 04/28/18 PREOPERATIVE DIAGNOSIS: LUMBAR RADICULOPATHY, ICD-10 CODE = M54.16 AND M54.17. OPERATION: FLUOROSCOPICALLY-GUIDED BILATERAL LUMBAR EPIDURAL INJECTION L4-5. SURGEON: ISRA YOUNGBLOOD D.O. ANESTHESIA: LOCAL SEDATION ANESTHESIA PROVIDER: MARKO WILLOUGHBY CRNA INDICATION: This patient presents with pain, which is low back and leg. The leg is primary component. The pattern involves a 4-5 towards the hips and outer surface of both legs. Diagnostics do confirm a 4-5 disc. PROCEDURE: Intravenous line, vital sign monitoring, IV sedation. Prepped and draped sterile technique. Under imaging, the epidural interspace at L4-5 marked bilaterally and skin infiltrated. Two separate 18-gauge Tuohy needles one left and one right of the midline. Contrast epidurogram left and right showed epidural flow left and then epidural flow right. 5 mL of 0.125% Marcaine with Dexamethasone was injected, first left, then right. Both needles removed, back cleaned, topical antibiotic and sterile dressing applied. We will monitor and evaluate. cc: Dr. Heredia JOB NUMBER: [id number] MTDD
== END 2018-04-28 08:16 | disposition home or self-care (01) ==
LOC: SUR 07:03
PROVIDERS: ATTEND Pain Medicine Interventional Pain Medicine
DX: M54.16 Radiculopathy, lumbar region (principal); M54.17 Radiculopathy, lumbosacral region; I10 Essential (primary) hypertension; J45.909 Unspecified asthma, uncomplicated
CPT/HCPCS: 62323; 01992; J1100; J3010

== ENCOUNTER 2018-06-30 06:36 | Day surgery (SDC) | payer BC ==
[2018-06-30] MEDS ORDERED: BUPIVACAINE 0.5% (5MG/ML) PF 30ML VIAL IVP ONE (06:37)
[2018-06-30] MEDS ORDERED: FENTANYL PF 100MCG/2ML VIAL IV ONE (06:37)
[2018-06-30] MEDS ORDERED: BUPIVACAINE 0.5% W/EPI MPF 30 ML VIAL IVP ONE (06:37)
[2018-06-30] MEDS ORDERED: DEXAMETHASONE PRESERVATIVE FREE 10MG/ML VIAL IV ONE (06:37)
[2018-06-30] MEDS ORDERED: MIDAZOLAM HCL 2MG/2ML VIAL IV ONE (06:37)
[2018-06-30] MEDS ORDERED: PROPOFOL 10 MG/ML VIAL IV ONE (06:37)
[2018-06-30] MEDS ORDERED: LIDOCAINE 1% W/EPI 1:200,000 MPF 30ML SQ ONE (06:37)
[2018-06-30] MEDS ORDERED: LIDOCAINE 2% MDV (20MG/ML) 20ML VIAL IV ONE (06:37)
--- NOTE | 2018-07-04 18:49 | Operative Note ---
PAIN SERVICE OPERATIVE REPORT DATE OF PROCEDURE: 06/30/2018. PRIMARY CARE PHYSICIAN: Suzette Heredia M.D. SURGEON: Juan Carlos Yap D.O. 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 POSTOPERATIVE DIAGNOSIS: RIGHT CERVICAL SPONDYLOSIS WITHOUT MYELOPATHY, ICD10 CODE M47.812. PROCEDURE: Fluoroscopically guided infiltration block right cervical facets 4-5, 5-6, and 6 -7. INDICATIONS: This patient presents with pain which is in the right side of the neck and shoulder. Diagnostics show significant endplate spurring and osteophyte formation. ANESTHESIA: Local sedation. ANESTHESIA PROVIDER: Primo Cochran CRNA. DESCRIPTION OF PROCEDURE: Intravenous line, vital sign monitoring, and intravenous sedation. Prepped and draped with sterile technique with the patient positioned prone. The cervical facet levels in the area of pain on the right were identified and marked at 4-5, 5-6, and 6-7. Each one of these points on the skin was infiltrated. A 25-gauge, 3.5-inch needle was placed into the facet, and 1.0 mL of 0.5% Marcaine and dexamethasone was injected at each of the sites on the right. The areas were cleaned, and topical antibiotic and sterile dressing were applied. We will monitor and evaluate. JOB NUMBER: [id number] cc: Suzette Heredia M.D. MTDD
== END 2018-06-30 08:50 | disposition home or self-care (01) ==
LOC: SUR 06:36
PROVIDERS: ATTEND Pain Medicine Interventional Pain Medicine
DX: M47.812 Spondylosis without myelopathy or radiculopathy, cervical region (principal); I10 Essential (primary) hypertension; J45.909 Unspecified asthma, uncomplicated
CPT/HCPCS: 64479; 64480 ×2; 01936; J1100; J3010

== ENCOUNTER 2018-07-28 06:38 | Day surgery (SDC) | payer BC ==
[2018-07-28] MEDS ORDERED: LIDOCAINE 2% MDV (20MG/ML) 20ML VIAL IV ONE (06:39)
[2018-07-28] MEDS ORDERED: KETOROLAC 30 MG/ML VIAL IVP ONE (06:39)
[2018-07-28] MEDS ORDERED: BUPIVACAINE 0.5% (5MG/ML) PF 30ML VIAL IVP ONE (06:39)
[2018-07-28] MEDS ORDERED: MIDAZOLAM HCL 2MG/2ML VIAL IV ONE (06:39)
[2018-07-28] MEDS ORDERED: DEXAMETHASONE PRESERVATIVE FREE 10MG/ML VIAL IV ONE (06:39)
[2018-07-28] MEDS ORDERED: PROPOFOL 10 MG/ML VIAL IV ONE (06:39)
[2018-07-28] MEDS ORDERED: BUPIVACAINE 0.5% W/EPI MPF 30 ML VIAL IVP ONE (06:39)
[2018-07-28] MEDS ORDERED: HYDROMORPHONE HCL 2 MG/ML VIAL IV ONE (06:39)
[2018-07-28] MEDS ORDERED: LIDOCAINE 1% W/EPI 1:200,000 MPF 30ML SQ ONE (06:39)
[2018-07-28] MEDS ORDERED: HYDROCODONE/APAP 7.5/325MG TABLET PO ONE (06:39)
--- NOTE | 2018-07-28 20:39 | Operative Note ---
DATE OF SURGERY: 07/28/2018 PREOPERATIVE DIAGNOSIS: LUMBAR SPONDYLOSIS WITHOUT MYELOPATHY, ICD-10 CODE = M47.816. POSTOPERATIVE DIAGNOSIS: LUMBAR SPONDYLOSIS WITHOUT MYELOPATHY, ICD-10 CODE = M47.816. SURGERY: FLUOROSCOPIC-GUIDED INFILTRATION AND BLOCK BILATERAL LUMBAR FACETS 3-4, 4-5, AND 5-1. SURGEON: ISRA YOUNGBLOOD D.O. PRIMARY CARE PHYSICIAN: DR. HEREDIA ANESTHESIA: LOCAL SEDATION. ARLEN SHEIKH CRNA INDICATIONS: This patient presents with pain, which is low back and hip. Diagnostics show multilevel facet spondylosis with the disc at 5-1. SURGERY: Intravenous line, vital sign monitoring, IV sedation, prepped and draped, sterile technique, under imaging, facet levels in the lumbar spine 3-4, 4-5, and 5-1 bilateral. Each one of these points on the skin infiltrated. A #22 gauge, 3.5 inch needle into the facet with 1 mL of 0.5% Marcaine and Dexamethasone injected. This was repeated bilaterally. Areas cleaned. Topical antibiotic. Sterile dressing was applied. We will monitor and evaluate. SIDE NOTE: This patient was quite tearful today. She is currently in the process of being weaned off opioids by this clinic. Her active participation in this system has been low. We have no true therapeutic relationship and have been providing scripts on a monthly basis. We are weaning and we will discontinue the use of opioids. She can be treated when she feels it's necessary but her medications will come from another source of her choice. cc: Dr. Heredia JOB NUMBER: [id number] MTDD
== END 2018-07-28 08:58 | disposition home or self-care (01) ==
LOC: SUR 06:38
PROVIDERS: ATTEND Pain Medicine Interventional Pain Medicine
DX: M47.816 Spondylosis without myelopathy or radiculopathy, lumbar region (principal); I10 Essential (primary) hypertension; J45.909 Unspecified asthma, uncomplicated; R00.2 Palpitations; G62.9 Polyneuropathy, unspecified; M06.9 Rheumatoid arthritis, unspecified; M79.7 Fibromyalgia; F17.210 Nicotine dependence, cigarettes, uncomplicated; K21.9 Gastro-esophageal reflux disease without esophagitis
CPT/HCPCS: 64493; 64494; 64495; 01992; J1885; J1100; J1170